=== PATIENT | female | born 1955 | race Caucasian/White ===

== ENCOUNTER 2019-03-13 07:50 | Emergency (ER) | payer MEDICARE ==
[2019-03-13] MEDS ORDERED: Albuterol/Ipratropium 3.0-0.5 MG/3 ML Neb Soln NEB ONE (08:13)
[2019-03-13] MEDS ORDERED: Sodium Chloride 0.9% 10 ML Syringe FLUSH PRN (08:26)
[2019-03-13] MEDS ORDERED: methylPREDNISolone Sodium Succinate 125 MG/2 ML SDV IVPUSH ONE (08:26)
--- NOTE | 2019-03-13 08:27 | EDM.PDOC ---
ED HPI GENERAL MEDICAL PROBLEM - General Chief Complaint: General Stated Complaint: ASTHMA Time Seen by Provider: 03/13/19 08:15 Source of Information: Reports: Patient History Limitations: Reports: No Limitations - History of Present Illness INITIAL COMMENTS - FREE TEXT/NARRATIVE: 64 YO WF presents to ER complaining shortness of breath x 3 days. Pt with history of asthma who states over the last 3 days she has been more fatigued and short of breath with dyspnea on exertion requiring use of her inhaler more frequently. Pt reports her symptoms are very similar to her previous asthma attacks. Pt denies chest pain, nausea, diaphoresis. Pt denies any recent illnesses or fever/chills. Pt reports she needs her inhaler after walking 20ft. Pt denies any peripheral edema or history of CHF. Pt reports improvement after using her inhaler but states shes using it every 4 hours and thinks she needs a steroid injection. Onset Date: 03/11/19 Duration: Day(s): (3) Severity: Moderate Improves with: Reports: Medication Worsens with: Reports: Breathing Associated Symptoms: Reports: Cough, Shortness of Breath. Denies: Chest Pain, Fever/Chills, Headaches, Nausea/Vomiting, Rash, Seizure, Syncope, Weakness Headache Pain Score (Numeric/FACES): 7 - Related Data Allergies Allergy/AdvReac Type Severity Reaction Status Date / Time No Known Drug Allergies Allergy Cannot Verified 03/13/19 08:10 Remember Home Meds: Home Meds Albuterol [Proventil Neb Soln] 1.25 mg NEB Q4HRRT #30 neb 03/13/19 [Rx] predniSONE 20 mg PO WITHBREAKFAST #15 tab 03/13/19 [Rx] Social & Family History - Tobacco Use Smoking Status *Q: Never Smoker Second Hand Smoke Exposure: Yes - Caffeine Use Caffeine Use: Reports: Energy Drinks, Soda - Recreational Drug Use Recreational Drug Use: No ED ROS GENERAL - Review of Systems Review Of Systems: See Below Constitutional: Reports: No Symptoms HEENT: Reports: No Symptoms Respiratory: Reports: Shortness of Breath, Cough Cardiovascular: Reports: No Symptoms Endocrine: Reports: No Symptoms GI/Abdominal: Reports: No Symptoms : Reports: No Symptoms Musculoskeletal: Reports: No Symptoms Skin: Reports: No Symptoms Neurological: Reports: No Symptoms Psychiatric: Reports: No Symptoms Hematologic/Lymphatic: Reports: No Symptoms Immunologic: Reports: No Symptoms ED EXAM, GENERAL - Physical Exam Exam: See Below Exam Limited By: No Limitations General Appearance: Alert, WD/WN, No Apparent Distress Nose: Normal Inspection, Normal Mucosa, No Blood Throat/Mouth: Normal Inspection, Normal Lips, Normal Teeth, Normal Gums, Normal Oropharynx, Normal Voice, No Airway Compromise Head: Atraumatic, Normocephalic Neck: Normal Inspection, Supple, Non-Tender, Full Range of Motion Respiratory/Chest: No Respiratory Distress, Wheezing, Accessory Muscle Use Cardiovascular: Normal Peripheral Pulses, Regular Rate, Rhythm, No Edema, No Gallop, No JVD, No Murmur, No Rub GI/Abdominal: Normal Bowel Sounds, Soft, Non-Tender, No Organomegaly, No Distention, No Abnormal Bruit, No Mass Back Exam: Normal Inspection, Full Range of Motion, NT Extremities: Normal Inspection, Normal Range of Motion, Non-Tender, Normal Capillary Refill, No Pedal Edema Neurological: Alert, Oriented, CN II-XII Intact, Normal Cognition, Normal Gait, Normal Reflexes, No Motor/Sensory Deficits Psychiatric: Normal Affect Skin Exam: Warm, Dry, Intact, Normal Color, No Rash Lymphatic: No Adenopathy EKG INTERPRETATION EKG Date: 03/13/19 Time: 08:59 Rhythm: NSR Rate (Beats/Min): 98 [place]: Normal P-Wave: Present QRS: Normal ST-T: Normal QT: Prolonged Comparison: NA - No Prior EKG Course - Vital Signs Last Recorded V/S: Last Vital Signs Temp 36.1 C 03/13/19 08:07 Pulse 97 03/13/19 08:14 Resp 26 H 03/13/19 08:12 BP 150/103 H 03/13/19 08:12 Pulse Ox 98 03/13/19 08:14 - Orders/Labs/Meds Orders: Active Orders 24 hr Category Date Time Status EKG Documentation Completion [RC] ASDIRECTED Care 03/13/19 08:26 Active Peripheral IV Care [RC] . DIRECTED Care 03/13/19 08:26 Active RT Aerosol Therapy [RC] ASDIRECTED Care 03/13/19 08:14 Active Sodium Chloride 0.9% [Saline Flush] Med 03/13/19 08:26 Active 10 ml FLUSH Q8HR PRN Peripheral IV Insertion Adult [OM.PC] Routine Oth 03/13/19 08:26 Ordered EKG 12 Lead [EK] Routine Ther 03/13/19 08:26 Ordered Medication Orders Sodium Chloride (Saline Flush) 10 ml FLUSH Q8HR PRN PRN Reason: keep vein open Labs: Laboratory Tests 03/13/19 03/13/19 Range/Units 08:35 08:35 WBC 10.07 H (5.00-10.00) 10^3/uL RBC 4.05 (3.80-5.50) 10^6/uL Hgb 12.5 (12.0-16.0) g/dL Hct 37.9 (37.0-47.0) % MCV 93.6 H (82.0-92.0) fL MCH 30.9 (27.0-31.0) pg MCHC 33.0 (32.0-36.0) g/dL RDW 13.1 (11.5-14.5) % Plt Count 290 (150-400) 10^3/uL MPV 9.7 (7.4-10.4) fL Immature Gran % (Auto) 0.2 (0.0-5.0) % Neut % (Auto) 65.1 (50.0-70.0) % Lymph % (Auto) 25.0 (20.0-40.0) % [place] % (Auto) 7.2 (2.0-8.0) % Eos % (Auto) 1.9 (1.0-3.0) % Baso % (Auto) 0.6 (0.0-1.0) % Immature Gran # (Auto) 0.02 (0.00-0.50) 10^3/uL Neut # (Auto) 6.55 (2.50-7.00) 10^3/uL Lymph # (Auto) 2.52 (1.00-4.00) 10^3/uL [place] # (Auto) 0.73 (0.10-0.80) 10^3/uL Eos # (Auto) 0.19 (0.10-0.30) 10^3/uL Baso # (Auto) 0.06 (0.00-0.10) 10^3/uL Sodium 141 (136-145) mmol/L Potassium 3.7 (3.3-5.3) mmol/L Chloride 106 (98-115) mmol/L Carbon Dioxide 22.9 (21.0-32.0) mmol/L Anion Gap 15.8 H (5-15) mmol/L BUN 17 (6-25) mg/dL Creatinine 0.99 (0.51-1.17) mg/dL Est Cr Clr Drug Dosing 57.15 mL/min Estimated GFR (MDRD) 56 mL/min Glucose 110 H (75 - 99) mg/dL Calcium 8.7 (8.7-10.3) mg/dL Total Bilirubin 0.5 (0.2-1.0) mg/dL AST 102 H (15-37) U/L ALT 154 H (12-78) U/L Alkaline Phosphatase 118 H (46-116) IU/L Total Protein 6.6 (6.4-8.2) g/dL Albumin 3.70 (3.00-4.80) g/dL Meds: Medications Generic Name Dose Route Start Last Admin Trade Name Freq PRN Reason Stop Dose Admin Sodium Chloride 10 ml 03/13/19 08:26 Saline Flush FLUSH Q8HR PRN keep vein open Discontinued Medications Generic Name Dose Route Start Last Admin Trade Name Freq PRN Reason Stop Dose Admin Albuterol/Ipratropium 3 ml 03/13/19 08:13 03/13/19 08:18 Duoneb 3.0-0.5 Mg/3 Ml NEB 03/13/19 08:14 3 ml ONETIME ONE Administration Methylprednisolone Sodium Succinate 125 mg 03/13/19 08:26 03/13/19 08:50 Solu-Medrol IVPUSH 03/13/19 08:27 125 mg ONETIME ONE Administration - Radiology Interpretation Free Text/Narrative:: CXR- NAD - Re-Assessments/Exams Free Text/Narrative Re-Assessment/Exam: 03/13/19 09:41 pt reports much improvement after albuterol/atrovent/solumedrol treatment. Pt reports her breathing has improved and would like to go home. Lungs- CTAB after duoneb tx Departure - Departure Time of Disposition: 09:36 Disposition: Home, Self-Care 01 Condition: Good Clinical Impression: Asthma exacerbation Qualifiers: Asthma severity: moderate - Discharge Information Prescriptions: Albuterol [Proventil Neb Soln] 1.25 mg NEB Q4HRRT #30 neb predniSONE 20 mg PO WITHBREAKFAST #15 tab Instructions: Asthma, Adult, [id number] Referrals: Cathryn Chang MD [Physician] - Forms: ED Department Discharge Additional Instructions: 1. discharge home 2. prednisone 60mg PO QD 3. albuterol neb/inhaler Q4 and PRN 4. follow up with PCP for further evaluation and treatment 5. return to ER for worsening symptoms - My Orders Last 24 Hours: My Active Orders 03/13/19 08:14 RT Aerosol Therapy [RC] ASDIRECTED 03/13/19 08:26 EKG Documentation Completion [RC] ASDIRECTED Peripheral IV Care [RC] . DIRECTED Sodium Chloride 0.9% [Saline Flush] 10 ml FLUSH Q8HR PRN Peripheral IV Insertion Adult [OM.PC] Routine EKG 12 Lead [EK] Routine - Assessment/Plan Last 24 Hours: My Active Orders 03/13/19 08:14 RT Aerosol Therapy [RC] ASDIRECTED 03/13/19 08:26 EKG Documentation Completion [RC] ASDIRECTED Peripheral IV Care [RC] . DIRECTED Sodium Chloride 0.9% [Saline Flush] 10 ml FLUSH Q8HR PRN Peripheral IV Insertion Adult [OM.PC] Routine EKG 12 Lead [EK] Routine Assessment:: 1. Asthma exacerbation Plan: 1. discharge home 2. prednisone 60mg PO QD 3. albuterol neb/inhaler Q4 and PRN 4. follow up with PCP for further evaluation and treatment 5. return to ER for worsening symptoms
[2019-03-13 09:04] LABS: ANION GAP 15.8 mmol/L (5-15)
--- NOTE | 2019-03-13 09:31 | CR ---
[id number] RAD/RAD Chest PA And Lateral EXAM: RAD Chest PA And Lateral INDICATION: SHORTNESS OF BREATH. COMPARISON: None. DISCUSSION: Cardiomediastinal silhouette is normal in size and contour. No infiltrate, effusion, pneumothorax, or edema. IMPRESSION: No acute cardiopulmonary abnormality. Hector Crockett DO 03/13/19 0930 Thank you for allowing us to participate in the care of your patient.
[2019-03-13] MEDS ORDERED: Albuterol 8 GM Inhaler INH ONE (09:40)
== END 2019-03-13 10:25 | disposition home or self-care (01) ==
LOC: KA.ED 07:50
DX: J45.901 Unspecified asthma with (acute) exacerbation (principal); Z77.22 Contact with and (suspected) exposure to environmental tobacco smoke (acute) (chronic)
CPT/HCPCS: 71046; 80053; 85025; 93005; 96374; 99285; A9270; J2930; 99284; J7620-GY

== ENCOUNTER 2019-03-28 20:36 | Emergency (ER) | payer MEDICARE ==
[2019-03-28] MEDS ORDERED: Albuterol/Ipratropium 3.0-0.5 MG/3 ML Neb Soln NEB ONE (20:43)
[2019-03-28] MEDS ORDERED: diphenhydrAMINE 50 MG/ML SDV IVPUSH ONE (20:43)
[2019-03-28] MEDS ORDERED: Famotidine 20 MG/2 ML SDV IVPUSH ONE (20:43)
[2019-03-28] MEDS ORDERED: methylPREDNISolone Sodium Succinate 125 MG/2 ML SDV IVPUSH ONE (20:43)
[2019-03-28] MEDS ORDERED: Sodium Chloride 0.9% 10 ML Syringe FLUSH PRN (20:44)
--- NOTE | 2019-03-28 20:46 | EDM.PDOC ---
ED HPI GENERAL MEDICAL PROBLEM - General Chief Complaint: Allergic Reaction Stated Complaint: SHORT OF BREATH Time Seen by Provider: 03/28/19 20:36 Source of Information: Reports: Patient History Limitations: Reports: No Limitations - History of Present Illness INITIAL COMMENTS - FREE TEXT/NARRATIVE: 64 YO WF with PMH of chronic asthma presents to ER after unknown inhalation exposure. Pt reports she was in her apartment when she noticed an abnormal smell and began having difficulty breathing with lightheadedness, nausea and tingling sensation to the tip of her tongue. Pt reports she started coughing and had to go outside to breath. Pt drove herself to ER for further evaluation and treatment. Upon arrival to ER patient reports she was feeling better. Pt denies difficulty swallowing, no stridor, coughing improved. Pt denies any rash , chest pain, fever/chills or active vomiting. Fire department arrived and check apartment and states no known contact could be found. Onset: Sudden Duration: Minutes: Location: Reports: Generalized Quality: Reports: Other (tightness) Severity: Mild Improves with: Reports: Other (fresh air) Worsens with: Reports: None Associated Symptoms: Reports: Cough, Shortness of Breath - Related Data Allergies Allergy/AdvReac Type Severity Reaction Status Date / Time No Known Drug Allergies Allergy Cannot Verified 03/28/19 21:33 Remember Home Meds: Home Meds Albuterol Sulfate 0.63 mg IH QID PRN 03/13/19 [History] Albuterol Sulfate [Albuterol Sulfate Hfa] 1 puff IH Q2H PRN 03/13/19 [History] Albuterol [Proventil Neb Soln] 1.25 mg NEB Q4HRRT #30 neb 03/13/19 [Rx] Albuterol/Ipratropium [Combivent Respimat] 1 puff IH Q4H PRN 03/13/19 [History] Loratadine/Pseudoephedrine [Claritin-D 24 Hour Tablet] 1 each PO DAILY 03/13/19 [History] predniSONE 20 mg PO WITHBREAKFAST #15 tab 03/13/19 [Rx] predniSONE 20 mg PO WITHBREAKFAST #15 tab 03/28/19 [Rx] Past Medical History HEENT History: Reports: Impaired Vision Cardiovascular History: Reports: Hypertension Respiratory History: Reports: Asthma, Bronchitis, Recurrent, COPD Gastrointestinal History: Reports: Hemorrhoids Genitourinary History: Reports: None [employer] History: Reports: Musculoskeletal History: Reports: Fracture Neurological History: Reports: Concussion, Headaches, Chronic Psychiatric History: Reports: None Endocrine/Metabolic History: Reports: None Hematologic History: Reports: None Immunologic History: Reports: None Oncologic (Cancer) History: Reports: None Dermatologic History: Reports: None - Infectious Disease History Infectious Disease History: Reports: Chicken Pox, Measles - Past Surgical History HEENT Surgical History: Reports: Oral Surgery Cardiovascular Surgical History: Reports: None Respiratory Surgical History: Reports: None GI Surgical History: Reports: None Female Surgical History: Reports: Section, D&C, Tubal Ligation Endocrine Surgical History: Reports: None Musculoskeletal Surgical History: Reports: None Oncologic Surgical History: Reports: None Dermatological Surgical History: Reports: None Social & Family History - Caffeine Use Caffeine Use: Reports: Energy Drinks, Soda ED ROS ALLERGIC REACTION - Review of Systems Review Of Systems: See Below Constitutional: Reports: No Symptoms HEENT: Reports: No Symptoms Respiratory: Reports: Shortness of Breath, Wheezing Cardiovascular: Reports: Lightheadedness Endocrine: Reports: No Symptoms GI/Abdominal: Reports: Nausea : Reports: No Symptoms Musculoskeletal: Reports: No Symptoms Skin: Reports: No Symptoms Neurological: Reports: No Symptoms Psychiatric: Reports: No Symptoms Hematologic/Lymphatic: Reports: No Symptoms Immunologic: Reports: No Symptoms ED EXAM GENERAL NO PERIP PULSE - Physical Exam Exam: See Below Exam Limited By: No Limitations General Appearance: Alert, WD/WN, No Apparent Distress Eye Exam: Bilateral Eye: EOMI, PERRL Throat/Mouth: Normal Inspection, Normal Lips, Normal Teeth, Normal Gums, Normal Oropharynx, Normal Voice, No Airway Compromise Head: Atraumatic, Normocephalic Neck: Normal Inspection, Supple, Non-Tender, Full Range of Motion Respiratory/Chest: No Respiratory Distress, No Accessory Muscle Use, Chest Non- Tender, Wheezing Cardiovascular: Normal Peripheral Pulses, Regular Rate, Rhythm, No Edema, No Gallop, No JVD, No Murmur, No Rub GI/Abdominal: Normal Bowel Sounds, Soft, Non-Tender, No Organomegaly, No Distention, No Abnormal Bruit, No Mass Back Exam: Normal Inspection, Full Range of Motion, NT Extremities: Normal Inspection, Normal Range of Motion, Non-Tender, Normal Capillary Refill, No Pedal Edema Neurological: Alert, Oriented, CN II-XII Intact, Normal Cognition, Normal Gait, Normal Reflexes, No Motor/Sensory Deficits Psychiatric: Normal Affect, Normal Mood Lymphatic: No Adenopathy EKG INTERPRETATION EKG Date: 03/28/19 Time: 21:41 Rhythm: NSR Rate (Beats/Min): 102 [place]: Normal P-Wave: Present QRS: Normal ST-T: Normal QT: Normal Comparison: NA - No Prior EKG Course - Vital Signs Last Recorded V/S: Last Vital Signs Temp 36.3 C 03/28/19 20:42 Pulse 110 H 03/28/19 20:42 Resp 24 H 03/28/19 20:42 BP 165/97 H 03/28/19 20:42 Pulse Ox 98 03/28/19 20:42 - Orders/Labs/Meds Orders: Active Orders 24 hr Category Date Time Status EKG Documentation Completion [RC] ASDIRECTED Care 03/28/19 20:45 Active Peripheral IV Care [RC] . DIRECTED Care 03/28/19 20:45 Active RT Aerosol Therapy [RC] ASDIRECTED Care 03/28/19 20:44 Active Chest 2V [CR] Stat Exams 03/28/19 20:44 Taken Sodium Chloride 0.9% [Saline Flush] Med 03/28/19 20:44 Active 10 ml FLUSH Q8HR PRN Peripheral IV Insertion Adult [OM.PC] Routine Oth 03/28/19 20:44 Ordered EKG 12 Lead [EK] Routine Ther 03/28/19 20:44 Ordered Medication Orders Sodium Chloride (Saline Flush) 10 ml FLUSH Q8HR PRN PRN Reason: keep vein open Labs: Laboratory Tests 03/28/19 03/28/19 Range/Units 20:42 20:42 WBC 14.29 H (5.00-10.00) 10^3/uL RBC 4.67 (3.80-5.50) 10^6/uL Hgb 14.8 D (12.0-16.0) g/dL Hct 44.8 (37.0-47.0) % MCV 95.9 H (82.0-92.0) fL MCH 31.7 H (27.0-31.0) pg MCHC 33.0 (32.0-36.0) g/dL RDW 13.7 (11.5-14.5) % Plt Count 294 (150-400) 10^3/uL MPV 9.5 (7.4-10.4) fL Immature Gran % (Auto) 0.4 (0.0-5.0) % Neut % (Auto) 68.8 (50.0-70.0) % Lymph % (Auto) 19.9 L (20.0-40.0) % [place] % (Auto) 7.8 (2.0-8.0) % Eos % (Auto) 2.5 (1.0-3.0) % Baso % (Auto) 0.6 (0.0-1.0) % Immature Gran # (Auto) 0.06 (0.00-0.50) 10^3/uL Neut # (Auto) 9.82 H (2.50-7.00) 10^3/uL Lymph # (Auto) 2.85 (1.00-4.00) 10^3/uL [place] # (Auto) 1.11 H (0.10-0.80) 10^3/uL Eos # (Auto) 0.36 H (0.10-0.30) 10^3/uL Baso # (Auto) 0.09 (0.00-0.10) 10^3/uL Sodium 135 L (136-145) mmol/L Potassium 4.3 (3.3-5.3) mmol/L Chloride 101 (98-115) mmol/L Carbon Dioxide 22.9 (21.0-32.0) mmol/L Anion Gap 15.4 H (5-15) mmol/L BUN 18 (6-25) mg/dL Creatinine 0.97 (0.51-1.17) mg/dL Est Cr Clr Drug Dosing 58.33 mL/min Estimated GFR (MDRD) 58 mL/min Glucose 148 H (75 - 99) mg/dL Calcium 8.9 (8.7-10.3) mg/dL Total Bilirubin 0.6 (0.2-1.0) mg/dL AST 27 (15-37) U/L ALT 84 H (12-78) U/L Alkaline Phosphatase 85 (46-116) IU/L Total Protein 6.8 (6.4-8.2) g/dL Albumin 3.76 (3.00-4.80) g/dL Meds: Medications Generic Name Dose Route Start Last Admin Trade Name [place] PRN Reason Stop Dose Admin Sodium Chloride 10 ml 03/28/19 20:44 Saline Flush FLUSH Q8HR PRN keep vein open Discontinued Medications Generic Name Dose Route Start Last Admin Trade Name Freq PRN Reason Stop Dose Admin Albuterol/Ipratropium 3 ml 03/28/19 20:43 Duoneb 3.0-0.5 Mg/3 Ml NEB 03/28/19 20:44 ONETIME ONE Diphenhydramine HCl 50 mg 03/28/19 20:43 Benadryl IVPUSH 03/28/19 20:44 ONETIME ONE Famotidine 20 mg 03/28/19 20:43 Pepcid IVPUSH 03/28/19 20:44 ONETIME ONE Methylprednisolone Sodium Succinate 125 mg 03/28/19 20:43 Solu-Medrol IVPUSH 03/28/19 20:44 ONETIME ONE - Radiology Interpretation Free Text/Narrative:: CXR- NAD - Re-Assessments/Exams Free Text/Narrative Re-Assessment/Exam: 03/28/19 22:09 Pt reports symptoms resolved after breath treatment x 1 and medications. Pt will follow up in clinic for further evaluation of leukocytosis and treatment as needed Departure - Departure Time of Disposition: 22:03 Disposition: Home, Self-Care 01 Condition: Fair Clinical Impression: Bronchospasm Allergic reaction Qualifiers: Encounter type: initial encounter Qualified Code(s): T78.40XA - Allergy, unspecified, initial encounter Leukocytosis Qualifiers: Leukocytosis type: unspecified Qualified Code(s): D72.829 - Elevated white blood cell count, unspecified - Discharge Information Prescriptions: predniSONE 20 mg PO WITHBREAKFAST #15 tab Instructions: Bronchospasm, Adult, Complete Blood Count, Allergies, Adult Referrals: Alma Lopez PA-C [Primary Care Provider] - Forms: ED Department Discharge Additional Instructions: 1. discharge home 2. albuterol neb tx Q4 and PRN 3. prednisone 60mg PO QD x 5 days 4. benadryl 50mg PO Q6 PRN allergic reaction 5. follow up in clinic for recheck CBC and further management and treatment 6. return to ER for worsening symptoms - My Orders Last 24 Hours: My Active Orders 03/28/19 20:44 RT Aerosol Therapy [RC] ASDIRECTED Chest 2V [CR] Stat Sodium Chloride 0.9% [Saline Flush] 10 ml FLUSH Q8HR PRN Peripheral IV Insertion Adult [OM.PC] Routine EKG 12 Lead [EK] Routine 03/28/19 20:45 EKG Documentation Completion [RC] ASDIRECTED Peripheral IV Care [RC] . DIRECTED - Assessment/Plan Last 24 Hours: My Active Orders 03/28/19 20:44 RT Aerosol Therapy [RC] ASDIRECTED Chest 2V [CR] Stat Sodium Chloride 0.9% [Saline Flush] 10 ml FLUSH Q8HR PRN Peripheral IV Insertion Adult [OM.PC] Routine EKG 12 Lead [EK] Routine 03/28/19 20:45 EKG Documentation Completion [RC] ASDIRECTED Peripheral IV Care [RC] . DIRECTED Assessment:: 1. Allergic reaction to unknown inhalant 2. bronchospasm- resolved 3. leukocytosis- heme concentrated Plan: 1. discharge home 2. albuterol neb tx Q4 and PRN 3. prednisone 60mg PO QD x 5 days 4. benadryl 50mg PO Q6 PRN allergic reaction 5. follow up in clinic for recheck CBC and further management and treatment 6. return to ER for worsening symptoms
[2019-03-28 21:35] LABS: ANION GAP 15.4 mmol/L (5-15)
--- NOTE | 2019-03-29 08:10 | CR ---
[id number] RAD/RAD Chest PA And Lateral EXAM: RAD Chest PA And Lateral CLINICAL DATA: SHORTNESS OF BREATH COMPARISON: CORRELATION IS MADE WITH THE EXAM OF MARCH 13, 2019. FINDINGS: The lungs are clear. The cardiomediastinal contour is enlarged but stable. The regional bones and soft tissues are unremarkable. IMPRESSION: NO ACUTE PROCESS. Van Westfall MD 03/29/19 0809 Thank you for allowing us to participate in the care of your patient.
== END 2019-03-28 22:30 | disposition home or self-care (01) ==
LOC: KA.ED 20:36
DX: T78.40XA Allergy, unspecified, initial encounter (principal); D72.829 Elevated white blood cell count, unspecified; J98.01 Acute bronchospasm; I10 Essential (primary) hypertension; Z79.899 Other long term (current) drug therapy
CPT/HCPCS: 71046; 80053; 85025; 93005; 94640; 96374; 96375; 99284; 99285; J1200; J2930; J3490; J7620-GY

== ENCOUNTER 2019-04-03 02:27 | Emergency (ER) | payer MEDICARE ==
[2019-04-03] MEDS ORDERED: Albuterol/Ipratropium 3.0-0.5 MG/3 ML Neb Soln NEB ONE (02:38)
[2019-04-03] MEDS ORDERED: Aspirin 81 MG Tab.Chew PO ONE (02:56)
[2019-04-03 03:20] LABS: ANION GAP 15.4 mmol/L (5-15); CHLORIDE,CL 102 mmol/L (98-115); SODIUM,NA 137 mmol/L (136-145)
[2019-04-03] MEDS ORDERED: Nitroglycerin 0.4 MG Tab.SL SL ONE (03:23)
[2019-04-03] MEDS ORDERED: Heparin Sodium/0.45% NaCl 25,000 UNITS/250 ML BAG IV SCH (03:45)
[2019-04-03] MEDS ORDERED: Heparin Sodium 5,000 Units/ML Vial IVPUSH ONE (03:53)
--- NOTE | 2019-04-03 05:03 | EDM.PDOC ---
ED HPI GENERAL MEDICAL PROBLEM - General Chief Complaint: Respiratory Problem Stated Complaint: shortness of breath/chest pain Time Seen by Provider: 04/03/19 02:30 Source of Information: Reports: Patient History Limitations: Reports: No Limitations - History of Present Illness INITIAL COMMENTS - FREE TEXT/NARRATIVE: 64-year-old female presents to the emergency room with complaints of shortness of breath and chest pain. Symptoms began approximately 1:00 this morning. Patient states she felt that she had an exacerbation of her symptoms that was brought on because the neighbor in the apartment next her with smoking or vaping. She's had a recent exacerbation of these symptoms last week and was started on 20 mg of prednisone. She did duo nebulizer treatment prior to arrival and noticed little improvement. Her chest pain is new onset and feels different from her prior exacerbation of her breathing. She feels tightness in her chest and pressure. She denies any radiation of the pain to her back neck or arm. She is not nauseated. She's not diaphoretic. She denies headache. She denies prior history of cardiac history. She does take medication for her blood pressure. Onset: Today, Sudden Onset Date: 04/03/19 Onset Time: 01:00 Duration: Minutes:, Getting Worse Location: Reports: Chest Quality: Reports: Pressure Severity: Moderate Improves with: Reports: Medication Worsens with: Reports: Breathing Associated Symptoms: Reports: Chest Pain, Shortness of Breath. Denies: Diaphoresis Treatments [employer] [place]: Reports: Breathing Treatments Mid-Sternal Chest Pain Score (Numeric/FACES): 2 - Related Data Allergies Allergy/AdvReac Type Severity Reaction Status Date / Time No Known Drug Allergies Allergy Cannot Verified 04/03/19 04:50 Remember Home Meds: Home Meds Albuterol Sulfate 0.63 mg IH QID PRN 03/13/19 [History] Albuterol Sulfate [Albuterol Sulfate Hfa] 1 puff IH Q2H PRN 03/13/19 [History] Albuterol [Proventil Neb Soln] 1.25 mg NEB Q4HRRT #30 neb 03/13/19 [Rx] Albuterol/Ipratropium [Combivent Respimat] 1 puff IH Q4H PRN 03/13/19 [History] Loratadine/Pseudoephedrine [Claritin-D 24 Hour Tablet] 1 each PO DAILY 03/13/19 [History] predniSONE 20 mg PO WITHBREAKFAST #15 tab 03/13/19 [Rx] predniSONE 20 mg PO WITHBREAKFAST #15 tab 03/28/19 [Rx] Past Medical History HEENT History: Reports: Impaired Vision Cardiovascular History: Reports: Hypertension Respiratory History: Reports: Asthma, Bronchitis, Recurrent, COPD Gastrointestinal History: Reports: Hemorrhoids Genitourinary History: Reports: None STEEPLE JACK History: Reports: Musculoskeletal History: Reports: Fracture Neurological History: Reports: Concussion, Headaches, Chronic Psychiatric History: Reports: None Endocrine/Metabolic History: Reports: None Hematologic History: Reports: None Immunologic History: Reports: None Oncologic (Cancer) History: Reports: None Dermatologic History: Reports: None - Infectious Disease History Infectious Disease History: Reports: Chicken Pox, Measles - Past Surgical History HEENT Surgical History: Reports: Oral Surgery Cardiovascular Surgical History: Reports: None Respiratory Surgical History: Reports: None GI Surgical History: Reports: None Female Surgical History: Reports: Section, D&C, Tubal Ligation Endocrine Surgical History: Reports: None Musculoskeletal Surgical History: Reports: None Oncologic Surgical History: Reports: None Dermatological Surgical History: Reports: None Social & Family History - Family History Family Medical History: Noncontributory - Tobacco Use Smoking Status *Q: Never Smoker - Caffeine Use Caffeine Use: Reports: Soda - Recreational Drug Use Recreational Drug Use: No ED ROS GENERAL - Review of Systems Review Of Systems: See Below Constitutional: Denies: Fever, Weakness, Diaphoresis HEENT: Reports: No Symptoms Respiratory: Reports: Shortness of Breath. Denies: Wheezing, Cough, Sputum Cardiovascular: Reports: Chest Pain, Blood Pressure Problem, Dyspnea on Exertion. Denies: Orthopnea Endocrine: Reports: No Symptoms GI/Abdominal: Denies: Abdominal Pain, Diarrhea, Nausea, Vomiting : Reports: No Symptoms Musculoskeletal: Reports: No Symptoms Skin: Denies: Cyanosis, Diaphoresis Neurological: Denies: Dizziness, Headache, Numbness, Tingling, Trouble Speaking , Weakness, Change in Speech Psychiatric: Reports: No Symptoms Hematologic/Lymphatic: Reports: No Symptoms Immunologic: Reports: No Symptoms ED EXAM, GENERAL - Physical Exam Exam: See Below Exam Limited By: No Limitations General Appearance: Alert, Anxious, Obese Eye Exam: Bilateral Eye: EOMI, Normal Inspection Ears: Hearing Grossly Normal Nose: Normal Inspection Throat/Mouth: Normal Inspection, Normal Lips, Normal Voice, No Airway Compromise Head: Atraumatic, Normocephalic Neck: Normal Inspection, Supple, Non-Tender, Full Range of Motion. No: Carotid Bruit Respiratory/Chest: No Respiratory Distress, Lungs Clear, Normal Breath Sounds, No Accessory Muscle Use. No: Crackles, Wheezing, Accessory Muscle Use Cardiovascular: Normal Peripheral Pulses, Regular Rate, Rhythm, No Murmur Peripheral Pulses: 2+: Carotid (L), Carotid (R), Radial (L), Radial (R), Dorsalis Pedis (L), Dorsalis Pedis (R) GI/Abdominal: Soft, No Distention, Other (Obese abdominal) Back Exam: Normal Inspection Extremities: Normal Inspection, Non-Tender, No Pedal Edema Neurological: Alert, Oriented, Normal Cognition, No Motor/Sensory Deficits Psychiatric: Normal Affect, Anxious Skin Exam: Warm, Dry, Intact, Normal Color, No Rash. No: Cyanosis, Diaphoretic Lymphatic: No Adenopathy EKG INTERPRETATION EKG Date: 04/03/19 Time: 02:50 Rhythm: Other (Sinus tachycardia with frequent premature ventricular complexes) Rate (Beats/Min): 105 [place]: Normal P-Wave: Present QRS: Normal ST-T: Normal QT: Normal Comparison: NA - No Prior EKG EKG Interpretation Comments: Sinus tachycardia with frequent premature ventricular complexes otherwise normal ECG Course - Vital Signs Last Recorded V/S: Last Vital Signs Temp 97.5 F 04/03/19 02:33 Pulse 95 04/03/19 03:38 Resp 28 H 04/03/19 02:33 BP 136/71 04/03/19 03:38 Pulse Ox 96 04/03/19 02:33 - Orders/Labs/Meds Orders: Active Orders 24 hr Category Date Time Status EKG Documentation Completion [RC] ASDIRECTED Care 04/03/19 02:39 Active RT Aerosol Therapy [RC] ASDIRECTED Care 04/03/19 02:39 Active Heparin Sodium/0.45% NaCl [Heparin 25,000 Units in 1/2 Med 04/03/19 03:45 Active NS 250 ML] 25,000 units in 250 ml IV TITRATE EKG 12 Lead [EK] Routine Ther 04/03/19 02:38 Ordered Medication Orders Heparin Sodium/Sodium Chloride (Heparin 25,000 Units In 1/2 Ns 250 Ml) 25,000 units in 250 mls @ 9.616 mls/hr IV TITRATE DERRICK; Protocol Last Admin: 04/03/19 04:01 Dose: 10 units/kg/hr, 9.616 mls/hr Labs: Laboratory Tests 04/03/19 04/03/19 Range/Units 02:45 02:45 WBC 11.07 H (5.00-10.00) 10^3/uL RBC 4.53 (3.80-5.50) 10^6/uL Hgb 14.2 (12.0-16.0) g/dL Hct 42.6 (37.0-47.0) % MCV 94.0 H (82.0-92.0) fL MCH 31.3 H (27.0-31.0) pg MCHC 33.3 (32.0-36.0) g/dL RDW 13.3 (11.5-14.5) % Plt Count 211 D (150-400) 10^3/uL MPV 9.0 (7.4-10.4) fL Immature Gran % (Auto) 0.2 (0.0-5.0) % Neut % (Auto) 66.9 (50.0-70.0) % Lymph % (Auto) 20.2 (20.0-40.0) % [place] % (Auto) 8.9 H (2.0-8.0) % Eos % (Auto) 3.3 H (1.0-3.0) % Baso % (Auto) 0.5 (0.0-1.0) % Immature Gran # (Auto) 0.02 (0.00-0.50) 10^3/uL Neut # (Auto) 7.41 H (2.50-7.00) 10^3/uL Lymph # (Auto) 2.24 (1.00-4.00) 10^3/uL [place] # (Auto) 0.99 H (0.10-0.80) 10^3/uL Eos # (Auto) 0.36 H (0.10-0.30) 10^3/uL Baso # (Auto) 0.05 (0.00-0.10) 10^3/uL Sodium 137 (136-145) mmol/L Potassium 4.2 (3.3-5.3) mmol/L Chloride 102 (98-115) mmol/L Carbon Dioxide 23.8 (21.0-32.0) mmol/L Anion Gap 15.4 H (5-15) mmol/L BUN 15 (6-25) mg/dL Creatinine 0.87 (0.51-1.17) mg/dL Est Cr Clr Drug Dosing TNP Estimated GFR (MDRD) > 60 mL/min Glucose 110 H (75 - 99) mg/dL Calcium 9.0 (8.7-10.3) mg/dL Troponin I 0.12 H* (0.00-0.070) ng/mL Meds: Medications Generic Name Dose Route Start Last Admin Trade Name Freq PRN Reason Stop Dose Admin Heparin Sodium/Sodium Chloride 25,000 units in 250 mls @ 9.616 mls/hr 03:45 04/03/19 04:01 Heparin 25,000 Units In 1/2 Ns 250 Ml IV 10 units/kg/hr TITRATE DERRICK 9.616 mls/hr Administration Protocol 10 UNITS/KG/HR Discontinued Medications Generic Name Dose Route Start Last Admin Trade Name Freq PRN Reason Stop Dose Admin Albuterol/Ipratropium 3 ml 04/03/19 02:38 04/03/19 02:58 Duoneb 3.0-0.5 Mg/3 Ml NEB 04/03/19 02:39 3 ml ONETIME ONE Administration Aspirin 324 mg 04/03/19 02:56 04/03/19 03:08 Aspirin PO 04/03/19 02:57 324 mg ONETIME ONE Administration Heparin Sodium (Porcine) 4,000 units 04/03/19 03:53 04/03/19 03:56 Heparin Sodium IVPUSH 04/03/19 03:54 4,000 units ONETIME ONE Administration Nitroglycerin 0.4 mg 04/03/19 03:23 04/03/19 03:27 Nitrostat SL 04/03/19 03:24 0.4 mg ONETIME ONE Administration - Re-Assessments/Exams Free Text/Narrative Re-Assessment/Exam: 04/03/19 05:19 Patient was given 4 81 mg chewable aspirin. Duo nebulizer treatment was completed and patient had some relief of her shortness of breath. Result showed troponin was 0.12. Patient was given a sublingual nitroglycerin. Noticed improvement of her chest pain. Call was made to [facility] and was recommended to give the patient heparin drip. Patient was given of 4000 units heparin bolus and IV heparin drip was started 1000 units per hour. Departure - Departure Time of Disposition: 05:15 Disposition: DC/Tfer to [facility] Condition: Good Clinical Impression: Atypical angina, Elevated troponin, Asthma exacerbation, mild - Discharge Information - My Orders Last 24 Hours: My Active Orders 04/03/19 02:38 EKG 12 Lead [EK] Routine 04/03/19 02:39 EKG Documentation Completion [RC] ASDIRECTED RT Aerosol Therapy [RC] ASDIRECTED 04/03/19 03:45 Heparin Sodium/0.45% NaCl [Heparin 25,000 Units in 1/2 NS 250 ML] 25,000 units in 250 ml IV TITRATE - Assessment/Plan Last 24 Hours: My Active Orders 04/03/19 02:38 EKG 12 Lead [EK] Routine 04/03/19 02:39 EKG Documentation Completion [RC] ASDIRECTED RT Aerosol Therapy [RC] ASDIRECTED 04/03/19 03:45 Heparin Sodium/0.45% NaCl [Heparin 25,000 Units in 1/2 NS 250 ML] 25,000 units in 250 ml IV TITRATE Assessment:: 1. Atypical chest pain, new onset 2. Elevated troponin 3. Mild asthma exacerbation Plan: 1. Patient had new onset of chest pain. She had improvement of her chest pain discomfort with sublingual nitroglycerin. Troponin level was elevated. 2. She was started on a heparin bolus and drip. 3. Transfer to [facility] was initiated and patient was taken by ALS. Patient was stable at the time of discharge and her chest pain and shortness of breath both were improved.
== END 2019-04-03 05:00 ==
LOC: KA.ED 02:27
DX: I20.9 Angina pectoris, unspecified (principal); J45.901 Unspecified asthma with (acute) exacerbation; R06.02 Shortness of breath; R79.89 Other specified abnormal findings of blood chemistry; I10 Essential (primary) hypertension; Z79.899 Other long term (current) drug therapy
CPT/HCPCS: 36415; 80048; 84484; 85025; 93005; 94640; 96365; 96376; 99284; 99285; A9270; J1644; J7620-GY